=== PATIENT | male | born 1995 | race African-American/Black ===

== ENCOUNTER 2021-03-11 04:05 | Emergency (ER) | payer OTHER ==
[~2021-03-11] VITALS: Ht 172.7 cm; Wt 74.0 kg
[2021-03-11 04:11] VITALS: BP 118/73
[2021-03-11] MEDS ORDERED: FAMOTIDINE 20MG TABLET PO ONE (05:00)
[2021-03-11 05:22] LABS: BASOPHILS % 0.3 % (0.0-2.0); HEMOGLOBIN. 13.6 g/dL (14.0-18.0); LYMPHOCYTES % 23.4 % (20.0-50.0); MEAN CORPUSCULAR HEMOGLOBIN 26.2 pg (28.0-32.0); MEAN CORPUSCULAR VOLUME 80.9 fL (80.0-94.0); MEAN PLATELET VOLUME 6.9 fl (7.4-10.4); MONOCYTES % 6.4 % (2.0-8.0); NEUTROPHILS % 67.9 % (40.0-76.0); PLATELET 304 x1000/uL (130-400); RED BLOOD CELL COUNT 5.19 mill/uL (4.7-6.1)
[2021-03-11 05:27] LABS: CHLORIDE 106 mEq/L (98-107)
[2021-03-11] MEDS ORDERED: FAMO-135 MT (05:36)
== END 2021-03-11 06:03 | disposition home or self-care (01) ==
LOC: ER 04:05
DX: R11.2 Nausea with vomiting, unspecified (principal); K30 Functional dyspepsia
CPT/HCPCS: 36415; 80053; 85025; 99283